=== PATIENT | male | born 1965 | race Caucasian/White ===

== ENCOUNTER 2017-03-19 07:44 | Emergency (ER) | payer SELFPAY ==
[2017-03-19] MEDS ORDERED: Tetan/Diph/Pertus SYR(Tdap)* 0.5 ML SYR(BOOSTRIX) use SYR IM ONE (09:06)
[2017-03-19] MEDS ORDERED: Lidocaine 2% PF * 5 ML VIAL INJ ONE (09:06)
--- NOTE | 2017-03-19 09:06 | UC ---
Laceration HPI - HPI Summary HPI Summary: 51 yo male with laceration to left ring finger unsure of last tetanus - History Of Current Complaint Chief Complaint: UCLaceration Stated Complaint: FINGER LACERATION Time Seen by Provider: 03/19/17 09:01 Hx Obtained From: Patient Laceration Location: Finger Mechanism Of Injury: Sharp Trauma Onset/Duration: Sudden Onset Severity: Moderate Pain Intensity: 6 Pain Scale Used: 0-10 Numeric - Allergies/Home Medications Allergies/Adverse Reactions: Allergies Allergy/AdvReac Type Severity Reaction Status Date / Time No Known Allergies Allergy Verified 03/19/17 08:00 Home Medications: Home Medications Citalopram TAB* [CeleXA TAB*] 10 mg PO DAILY 03/19/17 [History Confirmed ] Simvastatin TAB(NF) [Zocor(NF)] 20 mg PO 1700 03/19/17 [History Confirmed ] PMH/Surg Hx/FS Hx/Imm Hx Previously Healthy: Yes - Surgical History Surgical History: Yes Surgery Procedure, Year, and Place: Removal of lymph node in L groin - Family History Known Family History: Positive: Hypertension - Social History Alcohol Use: Rare Substance Use Type: None Smoking Status (MU): Never Smoked Tobacco - Immunization History Most Recent Tetanus Shot: 2004 Review of Systems Constitutional: Negative Skin: Negative Eyes: Negative ENT: Negative Respiratory: Negative Cardiovascular: Negative Gastrointestinal: Negative Genitourinary: Negative Motor: Negative Neurovascular: Negative Musculoskeletal: Negative Neurological: Negative Psychological: Negative All Other Systems Reviewed And Are Negative: Yes Physical Exam Triage Information Reviewed: Yes Appearance: Well-Appearing, No Pain Distress, Well-Nourished Vital Signs: Initial Vital Signs Temp 96.4 F 03/19/17 07:46 Pulse 82 03/19/17 07:46 Resp 18 03/19/17 07:46 BP 164/97 03/19/17 07:46 Pulse Ox 97 03/19/17 07:46 Vital Signs Reviewed: Yes Eyes: Positive: Conjunctiva Clear ENT: Positive: Hearing grossly normal. Negative: Nasal congestion, Nasal drainage, Trismus Neck exam: Normal Neck: Positive: Supple Respiratory: Positive: Lungs clear, Normal breath sounds, No respiratory distress, No accessory muscle use Cardiovascular: Positive: RRR, No Murmur Abdomen Description: Positive: Nontender, No Organomegaly Musculoskeletal: Positive: ROM Intact, No Edema Neurological: Positive: Alert Psychological Exam: Normal Skin Exam: Normal Laceration Repair - Laceration Repair 1 Description: Linear - flap Laceration Size After Repair: Length (cm) - 1.2, Width (mm) - 2, Depth (mm) - 2 Type Injection: Digital Anesthesia Used: 2.0% Lido Cleansing Completed Via Routine Prep: Yes Irrigation With Pressure Irrigation Device: Yes Closure Material: Skin Adhesive, SteriStrips Laceration Course/Dx - Differential Dx - Laceration/Wound Provider Diagnoses: flap laceration left ring finger Discharge - Discharge Plan Condition: Stable Disposition: HOME Patient Education Materials: Skin Adhesive Care (ED), Steristrips (ED) Forms: *Work Release Referrals: Non Staff,Doctor [Primary Care Provider] - Additional Instructions: flap may not take recheck for increased pain or concerns of infection wear splint at work recheck here in one week
[2017-03-19] MEDS ORDERED: Benzoin Compound STICK TOPICAL ONE (09:15)
[2017-03-19] MEDS ORDERED: Ibuprofen TAB* 600 MG PO ONE (10:16)
== END 2017-03-19 10:35 | disposition home or self-care (01) ==
LOC: UCEAST 07:44
DX: S61.215A Laceration without foreign body of left ring finger without damage to nail, initial encounter (principal); W26.8XXA Contact with other sharp object(s), not elsewhere classified, initial encounter; Y93.89 Activity, other specified; Y92.9 Unspecified place or not applicable; Y99.0 Civilian activity done for income or pay; Z23 Encounter for immunization
CPT/HCPCS: 12001; 90471; 90715; 99202; A9270-GY; G0463

== ENCOUNTER 2017-03-26 09:09 | Emergency (ER) | payer SELFPAY ==
[2017-03-26 09:28] VITALS: BP 156/89
--- NOTE | 2017-03-26 10:22 | UC ---
HPI Wound/Suture Re-check - HPI Summary HPI Summary: 51 male presents for a wound re-check. Had a skin avulsion/flap that he sustained one week ago while at work and a took broke cutting his left index finger pad. Patient has had no complaints or issues with the healing of the wound. Patient states the wound has not showed signs of infection and is closed. Has been keeping wound clean and covered. Not using it at work. Is in little to no pain. Here for release back to work. It was glued and steri- stripped by Dr Frost here one week ago. Has been also wearing splint to protect it from being hit and keeping it from getting wet/submerged in water. - History Of Current Complaint Chief Complaint: UCLaceration Stated Complaint: WOUND RECHECK Time Seen by Provider: 03/26/17 10:07 Hx Obtained From: Patient Onset/Duration: Sudden Onset Surgical Site: left index laceration Pain Intensity: 0 Pain Scale Used: 0-10 Numeric Procedure Type: wound repair, glue and steri strips Surgery Date: 03/19/17 - Allergies/Home Medications Allergies/Adverse Reactions: Allergies Allergy/AdvReac Type Severity Reaction Status Date / Time No Known Allergies Allergy Verified 03/26/17 09:28 Home Medications: Home Medications Venlafaxine EXT RELEASE CAP* [Effexor Xr CAP*] 37.5 mg PO DAILY 03/26/17 [ History Confirmed 03/26/17] PMH/Surg Hx/FS Hx/Imm Hx Endocrine History Of: Denies: Diabetes, Thyroid Disease Cardiovascular History Of: Denies: Cardiac Disorders, Hypertension Respiratory History Of: Denies: COPD, Asthma GI/ History Of: Denies: Ulcer - Surgical History Surgical History: Yes Surgery Procedure, Year, and Place: Removal of lymph node in L groin - Family History Known Family History: Positive: Hypertension - Social History Alcohol Use: Rare Substance Use Type: None Smoking Status (MU): Never Smoked Tobacco - Immunization History Most Recent Tetanus Shot: 2004 Review of Systems Constitutional: Negative Skin: Other - healed wound left index finger Respiratory: Negative Cardiovascular: Negative Motor: Negative Neurovascular: Negative Musculoskeletal: Negative All Other Systems Reviewed And Are Negative: Yes Physical Exam Triage Information Reviewed: Yes Appearance: Well-Appearing, No Pain Distress, Well-Nourished Vital Signs: Initial Vital Signs Temp 97.4 F 03/26/17 09:25 Pulse 78 03/26/17 09:25 Resp 16 03/26/17 09:25 BP 156/89 03/26/17 09:25 Pulse Ox 97 03/26/17 09:25 elevated pressure, compared to previous visit and is similar. asymptomatic. Vital Signs Reviewed: Yes Eyes: Positive: Conjunctiva Clear ENT: Positive: Normal ENT inspection Neck: Positive: Supple, Nontender, No Lymphadenopathy Respiratory: Positive: Chest non-tender, Lungs clear, Normal breath sounds, No respiratory distress, No accessory muscle use Cardiovascular: Positive: RRR, No Murmur, Pulses Normal - 2+ radial, Brisk Capillary Refill - <2 sec Musculoskeletal: Positive: Strength Intact, ROM Intact, No Edema Neurological Exam: Other - sensation intact Neurological: Positive: Alert, Muscle Tone Normal Skin Exam: Normal Skin: Positive: Other - healing wound on left index finger pad, anterior side. appears to have healed nicely. x1 week old. no signs of infection, erythema, edema, discharge. no ecchymosis or tenderness. closed nicely and well approximated. no dehiscence noted. full ROM and sensation Course/Dx - Course Course Of Treatment: wound appeared to have healed nicely without infection and pain. ready to return to work. stop wearing finger splint. given work release. aware of worsening signs and symptoms to continue to watch out for. - Differential Dx - Laceration/Wound Differential Diagnoses: Abscess, Cellulitis, Dehiscence, Healing Wound, Joint Infection, Other Provider Diagnoses: wound re-check, healing wound Discharge - Discharge Plan Condition: Stable Disposition: HOME Forms: *Work Release Referrals: Jarek PUENTE,Dru Hilliard [Primary Care Provider] - Additional Instructions: Be sure to still be cautious of wound. Keep clean and covered while at work. Keep an eye out for infection.
== END 2017-03-26 10:24 | disposition home or self-care (01) ==
LOC: UCEAST 09:09
DX: S61.211D Laceration without foreign body of left index finger without damage to nail, subsequent encounter (principal); W45.8XXD Other foreign body or object entering through skin, subsequent encounter; Y92.9 Unspecified place or not applicable; Y99.9 Unspecified external cause status
CPT/HCPCS: 99211; G0463

== ENCOUNTER 2019-10-05 16:02 | Emergency (ER) | payer OTHER ==
[2019-10-05 17:01] VITALS: BP 149/86
--- NOTE | 2019-10-05 19:00 | UC ---
Upper Extremity HPI - HPI Summary HPI Summary: Patient is a 54yo male presenting with R elbow, forearm, and wrist pain since this afternoon after slipping and falling on ice. States he fell onto his elbow and forearm but that pain radiated to wrist. Notes discomfort at rest but increased pain with movement of the elbow. Patient denies any swelling or bruising. Denies numbness and tingling. Denies decreased ROM. - History of Current Complaint Chief Complaint: UCUpperExtremity Stated Complaint: ARM INJURY Hx Obtained From: Patient Onset/Duration: Sudden Onset Severity Initially: Moderate Severity Currently: Moderate Pain Intensity: 6 Pain Scale Used: 0-10 Numeric - Allergies/Home Medications Allergies/Adverse Reactions: Allergies Allergy/AdvReac Type Severity Reaction Status Date / Time No Known Allergies Allergy Verified 10/05/19 17:00 Home Medications: Home Medications Cetirizine* [ZyrTEC 10 MG TAB*] 10 mg PO DAILY 10/05/19 [History Confirmed 10/05] Metformin HCl 500 mg PO DAILY WITH MEAL 10/05/19 [History Confirmed 10/05/19] PMH/Surg Hx/FS Hx/Imm Hx Endocrine History: Diabetes, Dyslipidemia - Surgical History Surgical History: Yes Surgery Procedure, Year, and Place: Removal of lymph node in L groin - Family History Known Family History: Positive: Hypertension, Non-Contributory - Social History Occupation: Employed Full-time Alcohol Use: Rare Substance Use Type: None Smoking Status (MU): Never Smoked Tobacco - Immunization History Most Recent Tetanus Shot: 2004 Review of Systems All Other Systems Reviewed And Are Negative: No Constitutional: Positive: Negative Skin: Negative: Bruising Respiratory: Positive: Negative Cardiovascular: Positive: Negative Neurovascular: Positive: Negative. Negative: Decreased Sensation Musculoskeletal: Positive: Arthralgia - L elbow, forearm, wrist. Negative: Decreased ROM, Edema Neurological: Negative: Paresthesia, Numbness Physical Exam Triage Information Reviewed: Yes Appearance: Well-Appearing, No Pain Distress, Well-Nourished Vital Signs: Initial Vital Signs Temp 98.4 F 10/05/19 16:56 Pulse 47 10/05/19 16:56 Resp 18 10/05/19 16:56 BP 149/86 10/05/19 16:56 Pulse Ox 98 10/05/19 16:56 Vital Signs Reviewed: Yes Eyes: Positive: Conjunctiva Clear ENT: Positive: Hearing grossly normal Neck: Positive: Supple Respiratory Exam: Normal Respiratory: Positive: Lungs clear, Normal breath sounds, No respiratory distress Cardiovascular Exam: Normal Cardiovascular: Positive: RRR, Pulses Normal - strong radial pulses b/l, Brisk Capillary Refill Musculoskeletal: Positive: Strength Intact, ROM Intact, No Edema, Other: - mild tenderness to palpation of ulnar aspect of proximal R forearm Neurological Exam: Other - sensation grossly intact Neurological: Positive: Alert Psychological: Positive: Age Appropriate Behavior Skin Exam: Normal - no erythema or ecchymosis noted Diagnostics - Radiology R elbow Radiology Interpretation Completed By: Radiologist Summary of Radiographic Findings: IMPRESSION: #. Small joint effusion. Given the clinical context an occult fracture most typically involving the radial head in an adult is not excluded. #. 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 R forearm Radiology Interpretation Completed By: Radiologist Summary of Radiographic Findings: IMPRESSION: #. Small joint effusion. Given the clinical context an occult fracture most typically involving the radial head in an adult is not excluded. #. 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 Upper Extremity Course/Dx - Course Course Of Treatment: Discussed with patient that radiographs were unable to r/o occult fracture. Instructed patient to continue with symptomatic treatment, including use of sling and to follow up with ortho for further evaluation. Patient voiced understanding and agreed with treatment plan. - Differential Dx/Diagnosis Differential Diagnosis/HQI/PQRI: Contusion, Strain, Sprain Provider Diagnosis: Right elbow pain, Right forearm injury Discharge ED - Sign-Out/Discharge Documenting (check all that apply): Patient Departure All imaging exams completed and their final reports reviewed: Yes - Discharge Plan Condition: Stable Disposition: HOME Patient Education Materials: Arthralgia (ED) Forms: *Work Release Referrals: Jluis Tolliver MD [Medical Doctor] - As Soon As Possible Additional Instructions: As discussed, your xrays were unable to rule out a possible fracture. Rest, ice, elevate, and use the sling to help relieve pain until you are able to follow up with orthopedics. Call the orthopedic referral listed below as soon as possible for further evaluation. You may also use over the counter pain medications as directed for pain relief. Return or go to the emergency room if pain worsens, the arm/hand becomes cold and numb, or you are unable to move the arm, wrist, or hand. - Billing Disposition and Condition Condition: STABLE Disposition: Home
== END 2019-10-05 19:25 | disposition home or self-care (01) ==
LOC: UCEAST 16:02
DX: S59.911A Unspecified injury of right forearm, initial encounter (principal); M25.521 Pain in right elbow; M25.531 Pain in right wrist; E11.9 Type 2 diabetes mellitus without complications; Z79.84 Long term (current) use of oral hypoglycemic drugs; W00.0XXA Fall on same level due to ice and snow, initial encounter; Y92.9 Unspecified place or not applicable
CPT/HCPCS: 99212; G0463